=== PATIENT | male | born 1970 | race Caucasian/White ===

== ENCOUNTER 2016-12-30 22:13 | Emergency (ER) | payer MEDICARE ==
[~2016-12-30 22:13] MED LIST: CARB200T16 PO; FLEX10TA PO; KLON2TAB PO; PRAZ2 PO; SIMV80TA PO
[2016-12-30 22:15] VITALS: BP 133/81; PULSE 107; RESP 20; TEMP 98.6; O2SAT 99
[2016-12-30] MEDS ORDERED: IBUP800T23 PO (23:19)
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
[2016-12-30] MEDS ORDERED: KETOROLAC TROMETHAMINE 60 MG/2 ML (IM) VIAL IM ONE (23:30)
== END 2016-12-30 23:45 | disposition home or self-care (01) ==
LOC: NEPK 22:13
DX: S62.101D Fracture of unspecified carpal bone, right wrist, subsequent encounter for fracture with routine healing (principal); S61.218D Laceration without foreign body of other finger without damage to nail, subsequent encounter; M79.642 Pain in left hand; M79.641 Pain in right hand; V89.2XXD Person injured in unspecified motor-vehicle accident, traffic, subsequent encounter
CPT/HCPCS: 96372; 99283; J1885